=== PATIENT | male | born 1985 | race African-American/Black ===

== ENCOUNTER 2017-11-23 19:51 | Emergency (ER) | payer OTHER ==
[~2017-11-23] VITALS: Ht 188 cm; Wt 97.5 kg
--- NOTE | ~2017-11-23 | EKG ---
[address] [place] [employer] [place] [address] ELECTROCARDIOGRAM REPORT Name: VLADIMIR SANTILLAN ALEXSANDER Room #: DEP [facility]USStephanieStephanie#: [id number] Admission: 11/23/17 Attend Phys: Discharge: 11/23/17 Date of : 89 Report #: [id number] THIS REPORT FOR: //name// [facility] ED Test Date: 2017-11-23 Test Time: 20:06:39 Pat Name: VLADIMIR SANTILLAN Department: Room: Gender: M Field Installer: KEELEY : 1985 Requested By: Theo Devlin Order Number: [id number] MD: Jonatan Sandra Measurements Intervals Odem Rate: 96 P: 55 IL: 145 QRS: 51 QRSD: 97 T: 20 QT: 360 QTc: 455 Interpretive Statements Sinus rhythm No significant abnormality No previous ECG available for comparison Electronically Signed On 11-24-2017 7:42:02 LEI [employer]KER by Jonatan Sandra [email or web address] <ELECTRONICALLY SIGNED> By: Jonatan Sandra MD, [facility] 11/24/17 0742 05 05 Jonatan Sandra MD, FACC /EPI
[~2017-11-23 19:51] MED LIST: CEFUROXIME250 MG PO; IBUPROFEN 600600 M1 PO; MEDROLDOSEPACK PO; MULTIVITAMINS1 EAC7 PO; TESSALON PERLE100 MG PO; XANAX 0.25 MG0.25 MG PO
[2017-11-23 20:09] LABS: URINE BILIRUBIN NEGATIVE (Negative); URINE BLOOD NEGATIVE (Negative); URINE CLARITY CLEAR; URINE COLOR YELLOW; URINE GLUCOSE-RANDOM* NEGATIVE (Negative); URINE KETONES NEGATIVE (Negative); URINE LEUKOCYTES NEGATIVE (Negative); URINE NITRITE NEGATIVE (Negative); URINE PROTEIN (DIPSTICK) NEGATIVE (Negative); URINE SPECIFIC GRAVITY >= 1.030 (1.005-1.035); URINE UROBILINOGEN 0.2 E.U./dl (0.2-1.0)
[2017-11-23 20:17] LABS: AMP/METHAMP Negative (Negative); BARBITURATES Negative (Negative); BENZODIAZEPINES Negative (Negative); COCAINE Negative (Negative); METHADONE Negative (Negative); OPIATES Negative (Negative); PCP Negative (Negative)
[2017-11-23 20:37] LABS: HEMATOCRIT 43.1 % (42.0-52.0); HEMOGLOBIN 14.7 gm/dL (14.0-18.0); MCH 28.6 pg (26.0-34.0); MCV 84.2 fL (80.0-100.0); RBC 5.13 mil/uL (4.50-6.00); WBC 7.5 thou/uL (4.0-11.0)
[2017-11-23 20:48] LABS: ANION GAP 8 mmol/L (7-16); BUN 19 mg/dL (7-18); CALCIUM 8.9 mg/dL (8.5-10.1); CHLORIDE 103 mmol/L (98-107); CO2 28 mmol/L (21-32); CREATININE 1.4 mg/dL (0.7-1.3); GLUCOSE 153 mg/dL (74-106); POTASSIUM 3.7 mmol/L (3.5-5.1); SODIUM 139 mmol/L (136-145)
[2017-11-23 21:07] LABS: TROPONIN-I < 0.04 ng/mL (<0.06)
== END 2017-11-23 21:43 | disposition home or self-care (01) ==
LOC: ER 19:51
PROVIDERS: Physician Assistant
DX: R00.2 Palpitations (principal); F12.929 Cannabis use, unspecified with intoxication, unspecified; R20.2 Paresthesia of skin

== ENCOUNTER 2021-04-03 16:16 | Emergency (ER) | payer OTHER ==
[~2021-04-03] VITALS: Ht 188 cm; Wt 108.9 kg
[2021-04-03 16:56] LABS: URINE BILIRUBIN NEGATIVE (Negative); URINE BLOOD NEGATIVE (Negative); URINE CLARITY CLEAR; URINE COLOR YELLOW; URINE GLUCOSE-RANDOM* NEGATIVE (Negative); URINE KETONES NEGATIVE (Negative); URINE LEUKOCYTES-REFLEX NEGATIVE (Negative); URINE NITRITE-REFLEX NEGATIVE (Negative); URINE PROTEIN (DIPSTICK) NEGATIVE (Negative); URINE SPECIFIC GRAVITY 1.015 (1.005-1.035); URINE UROBILINOGEN 0.2 E.U./dl (0.2-1.0)
[2021-04-03 16:58] LABS: ABSOLUTE NEUTROPHILS 8.3 thou/uL (1.4-8.2); BASOPHILS 0.4 % (0.0-2.0); EOSINOPHILS 0.1 % (0.0-3.0); HEMATOCRIT 48.4 % (42.0-52.0); HEMOGLOBIN 16.2 gm/dL (14.0-18.0); LYMPHOCYTES 6.3 % (24.0-44.0); MCH 28.9 pg (26.0-34.0); MCHC 33.4 g/dL (28.0-37.0); MCV 86.7 fL (80.0-100.0); MONOCYTES 4.6 % (1.0-8.0); PLATELET COUNT 248 thou/uL (150-400); POLYS 88.6 % (36.0-66.0); RBC 5.58 mil/uL (4.50-6.00); RDW 13.5 % (10.5-14.5); WBC 9.3 thou/uL (4.0-11.0)
[2021-04-03 17:14] LABS: ANION GAP 10 mmol/L (7-16); BUN 14 mg/dL (7-18); CHLORIDE 106 mmol/L (98-107); CO2 25 mmol/L (21-32); CREATININE 1.2 mg/dL (0.7-1.3); GLUCOSE 112 mg/dL (74-106); POTASSIUM 4.4 mmol/L (3.5-5.1); SODIUM 141 mmol/L (136-145)
[2021-04-03 17:18] LABS: ALBUMIN 4.2 g/dL (3.4-5.0); DIRECT BILIRUBIN < 0.1 mg/dL (<0.1-0.2); LIPASE 54 U/L (73-393); SGOT 28 U/L (15-37); SGPT 49 U/L (16-63); TOTAL BILIRUBIN 0.5 mg/dL (0.2-1.0); TOTAL PROTEIN 8.2 g/dL (6.4-8.2)
[2021-04-03 17:19] LABS: CALCIUM < 5.0 mg/dL (8.5-10.1)
[2021-04-03 20:28] VITALS: BP 112/54
[2021-04-03] MEDS ORDERED: CARAFATE 1 GM TA1 G1 PO (21:19)
[2021-04-03] MEDS ORDERED: ONDANSETRON HCL4 M2 PO (21:19)
== END 2021-04-03 21:58 | disposition home or self-care (01) ==
LOC: ER 16:16
PROVIDERS: Nurse Practitioner
DX: R10.13 Epigastric pain (principal); Z20.822 Contact with and (suspected) exposure to COVID-19; R10.11 Right upper quadrant pain; R11.2 Nausea with vomiting, unspecified; R42 Dizziness and giddiness